=== PATIENT | female | born 1955 | race Caucasian/White ===

== ENCOUNTER 2016-12-03 19:39 | Observation (INO) | payer BC ==
--- NOTE | 2016-12-03 21:35 | RAD ---
INDICATION: Chest pain. COMPARISON: There are no prior studies available for comparison. TECHNIQUE: A portable view of the chest was obtained. FINDINGS: Cardiac and mediastinal contours appear to be within normal limits. The lungs are clear. No pleural effusion is seen. Note is made of dorsal column stimulator leads. IMPRESSION: NO EVIDENCE FOR ACUTE DISEASE.
[2016-12-03 21:59] LABS: Albumin 4.4 g/dL (3.2-5.2); BUN/Creatinine Ratio 15.2 (8-20); Calcium 9.5 mg/dL (8.6-10.3); EGFR African American 95.5 (>60); EGFR Non-African American 74.2 (>60); Globulin 2.5 g/dL (2-4); Potassium 3.2 mmol/L (3.5-5.0); Total Bilirubin 0.5 mg/dL (0.2-1.0); Total Protein 6.9 g/dL (6.4-8.9)
[2016-12-03 22:06] LABS: Hematocrit 41 % (35-47); Hemoglobin 13.4 g/dl (12.0-16.0); Mean Corpuscular HGB Conc 33 g/dl (31-36); Mean Corpuscular Hemoglobin 29 pg (27-31); Mean Corpuscular Volume 88 fL (80-97); Mean Platelet Volume 8 um3 (7.4-10.4); Red Cell Distribution Width 13 % (10.5-15); White Blood Count 7.8 10^3/ul (3.5-10.8)
[2016-12-03] MEDS ORDERED: Diazepam SYRINGE* 5 MG/ML SYRINGE IV ONE (22:17)
[2016-12-03] MEDS ORDERED: Metoclopramide IV* 5 MG/ML 2 ML VIAL IV SLOW PU ONE (22:17)
--- NOTE | 2016-12-03 22:49 | RAD ---
INDICATION: Headache history of hemangiomas. COMPARISON: Comparison is made to prior MRI of the brain from February 10, 2014. TECHNIQUE: Contiguous axial sections of the brain were obtained from the skull base to the vertex without contrast. FINDINGS: The ventricles, cisterns and sulci are within normal limits. There are small calcific densities in the left temporal lobe in the region of the hemangioma noted on the prior MRI study. There is a small area of increased density in the left cerebellar hemisphere which also correlates with a hemangioma on the prior study. No other focal abnormalities or mass effect are seen. There is no evidence for hemorrhage. No significant focal osseous abnormality is seen. The visualized portion of the paranasal sinuses and mastoid air cells appear clear. IMPRESSION: 1. NO EVIDENCE FOR ACUTE INTRACRANIAL ABNORMALITY. 2. CALCIFICATIONS IN AREAS OF INCREASED DENSITY CORRESPONDING WITH THE HEMANGIOMAS NOTED ON THE PRIOR MRI STUDY.
[2016-12-03] MEDS ORDERED: Ketorolac INJ* 30 MG/ML 1 ML VIAL IV PUSH ONE (23:32)
[2016-12-03] MEDS ORDERED: Aspirin TAB* 325 MG PO ONE (23:33)
[2016-12-03] MEDS ORDERED: traMADol TAB* 50 MG PO ONE (23:57)
[2016-12-04] MEDS ORDERED: Triamcinolone 0.025% OINT * 15 GM TUBE TOPICAL PRN (02:47)
[2016-12-04] MEDS ORDERED: Lidocaine PATCH 5%* 1 PATCH TRANSDERM PRN (02:47)
[2016-12-04] MEDS ORDERED: Cyclobenzaprine TAB* 10 MG PO PRN (02:47)
[2016-12-04] MEDS ORDERED: Levalbuterol 1.25MG/0.5ML NEB INH PRN (02:47)
--- NOTE | 2016-12-04 02:57 | HP ---
H&P (Free Text) History and Physical: PCP: Anna De La Cruz MD Cardiology: Date/Time of Evaluation: 12/04/2016 0215 CC: chest pain HPI: Mrs Joel is an obese 61YO female HX HTN & HLD who presented to the ED with an exacerbation of chronic neck pain which has since been treated and is nearly resolved. However, in the evaluation it was discovered that she also experienced non-exertional, non-radiating mild-mod substernal chest pressure without SOB, N/V, sweats, palpitations, or light-headedness. She states this began around 1500 & lasted for ~6hours. She denies exacerbating or alleviating factors. ED evaluation is notable for stable, afebrile vitals. K 3.2 & glucose of 127. CXR and CT brain WO were negative. ECG is NSR rate 90, mild ST depression in II/ III/AVF/V3/V4. 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 chronic spinal pain s/p stimulator hypothyroidism Meniere's disease OA seasonal allergies Allergies Iodine Allergy (Severe, Verified 11/20/16 09:37) Anaphylatic Shock Ambulatory Orders Acyclovir 400 mg PO TID 03/16/13 Calcium Carbonate [Calcium 600] 400 mg PO TID 03/16/13 Gabapentin 400 mg PO QID 03/16/13 Metoprolol Succinate [Metoprolol Succinate ER] 25 mg PO QPM 03/16/13 Tramadol HCl 50 mg PO QID 03/16/13 Triamterene/HCTZ 37.5-25 MG* [Dyazide*] 1 cap PO BID 03/16/13 Levothyroxine Sodium [Synthroid] 50 mcg PO QAM 08/20/14 Triamcinolone 0.1% CREAM (NF) [Kenalog 0.1% Cream (NF)] 1 applic TOPICAL BID PRN 08/02/15 Cetirizine* [ZyrTEC*] 10 mg PO DAILY 10/27/15 Levalbuterol 1.25MG/0.5ML NEB* [Xopenex 1.25 MG/0.5 ML NEB.HINA*] 1.25 mg INH QPM PRN 10/27/15 Simvastatin [Zocor 5 MG-] 10 mg PO QPM 10/27/15 Cholecalciferol TAB* [Vitamin D TAB*] 1,000 unit PO BID 02/14/16 Cyclobenzaprine TAB* [Flexeril TAB*] 5 mg PO TID PRN 07/23/16 sulfaSALAzine TAB* [Azulfidine TAB*] 500 mg PO TID 07/23/16 Lidocaine PATCH 5%* [Lidoderm 5% Patch*] 1 patch TRANSDERM DAILY PRN 11/20/16 Folic Acid TAB* [Folvite TAB*] 1 mg PO DAILY 12/04/16 Methotrexate TAB* 2.5 mg PO Q7D 12/04/16 PSurgHx tonsillectomy hysterectomy w/ LOO C3-6 anterior & posterior fusion C4-5 foraminotomy L3-4 laminectomy & diskectomy L4-5 diskectomy spinal stimulator implantation SocHx: no tobacco, alcohol, or recreational drug use; lives with her ; on disability formerly working as a medical office rent control office manager; full code status FamHx: Father: CAD; Mother: early onset Parkinsonism in her 30s, passed of 2nd complications in her 60s; otherwise positive for RA & OA ROS: as above, otherwise reviewed and all were negative Constitutional: NAD, normally developed, obese white female vitals: Vital Signs Temp 36.5 C 12/04/16 02:36 Pulse 77 12/04/16 02:25 Resp 12 12/04/16 02:25 BP 99/54 12/04/16 02:00 Pulse Ox 97 12/04/16 02:25 Intake & Output 12/03/16 12/03/16 12/04/16 11:59 23:59 11:59 Weight 74.843 kg HEENM: atraumatic; sclera/conjunctiva: non-icteric/clear; hearing: clinically intact; oropharynx: clear, mucosa moist Neck: soft tissue: no nuchal rigidity; thyroid: normal Pulmonary: clear to auscultation bilaterally, good aeration, no accessory muscle use CV: RR/RR, normal S1S2, no carotid bruit, no jugular venous distention, 2+ B DP/ PT, no edema Abdominal: soft, non-distended, non-tender, no rebound/guarding/rigidity, normoactive bowel sounds, no hepatosplenomegaly or masses, no costovertebral angle tenderness Musculoskeletal: general: grossly intact; gait: stable Integumental: normal appearance and texture of exposed skin Psychiatric orientation: AA&O to PPS affect: calm mood: cooperative eye contact: good content: reliable responses: timely insight: fair to good Testing: Lab Results 12/03/16 12/03/16 12/03/16 Range/Units 21:25 21:25 21:25 WBC 7.8 (3.5-10.8) 10^3/ul RBC 4.60 (4.0-5.4) 10^6/ul Hgb 13.4 (12.0-16.0) g/dl Hct 41 (35-47) % MCV 88 (80-97) fL MCH 29 (27-31) pg MCHC 33 (31-36) g/dl RDW 13 (10.5-15) % Plt Count 235 (150-450) 10^3/ul MPV 8 (7.4-10.4) um3 Neut % (Auto) 77.2 (38-83) % Lymph % (Auto) 19.0 L (25-47) % [place] % (Auto) 3.0 (1-9) % Eos % (Auto) 0.5 (0-6) % Baso % (Auto) 0.3 (0-2) % Absolute Neuts (auto) 6.0 (1.5-7.7) 10^3/ul Absolute Lymphs (auto) 1.5 (1.0-4.8) 10^3/ul Absolute Monos (auto) 0.2 (0-0.8) 10^3/ul Absolute Eos (auto) 0 (0-0.6) 10^3/ul Absolute Basos (auto) 0 (0-0.2) 10^3/ul Absolute Nucleated RBC 0.01 10^3/ul Nucleated RBC % 0.1 Sodium 131 L (133-145) mmol/L Potassium 3.2 L (3.5-5.0) mmol/L Chloride 94 L (101-111) mmol/L Carbon Dioxide 29 (22-32) mmol/L Anion Gap 8 (2-11) mmol/L BUN 12 (6-24) mg/dL Creatinine 0.79 (0.51-0.95) mg/dL Est GFR ( Amer) 95.5 (>60) Est GFR (Non-Af Amer) 74.2 (>60) BUN/Creatinine Ratio 15.2 (8-20) Glucose 127 H (70-100) mg/dL Lactic Acid 1.7 (0.5-2.0) mmol/L Calcium 9.5 (8.6-10.3) mg/dL Total Bilirubin 0.50 (0.2-1.0) mg/dL AST 18 (13-39) U/L ALT 16 (7-52) U/L Alkaline Phosphatase 81 (34-104) U/L Troponin I 0.00 (<0.04) ng/mL Total Protein 6.9 (6.4-8.9) g/dL Albumin 4.4 (3.2-5.2) g/dL Globulin 2.5 (2-4) g/dL Albumin/Globulin Ratio 1.8 (1-3) ECG, personally reviewed: NSR rate 90, mild ST depression in II/III/AVF/V3/V4 CXR, personally reviewed: IMPRESSION: NO EVIDENCE FOR ACUTE DISEASE. CT brain WO, personally reviewed: IMPRESSION: 1. NO EVIDENCE FOR ACUTE INTRACRANIAL ABNORMALITY. 2. CALCIFICATIONS IN AREAS OF INCREASED DENSITY CORRESPONDING WITH THE HEMANGIOMAS NOTED ON THE PRIOR MRI STUDY. 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 arthritis : continue methotrexate & sulfasalazine asthma : levalbuterol nebs PRN HX cavernous hemangioma of brain : no acute issues HX short OK syndrome : no acute issues chronic spinal pain s/p stimulator : continue gabapentin, tramadol, lidocaine patch, & cyclobenzaprine hypothyroidism : continue levothyroxine Meniere's disease : continue triamterene/HCTZ OA seasonal allergies : continue cetirizine Ambulatory Orders sulfaSALAzine TAB* [Azulfidine TAB*] 500 mg PO TID 07/23/16 Folic Acid TAB* [Folvite TAB*] 1 mg PO DAILY 12/04/16 Methotrexate TAB* 2.5 mg PO Q7D 12/04/16 Admission Rational: CDU observation for r/o ACS DVTp: heparin SQ Code Status: full HCP:
[2016-12-04] MEDS ORDERED: Ondansetron INJ* 2 MG/ML VIAL IV PRN (03:23)
[2016-12-04] MEDS ORDERED: Melatonin (NF) 3 MG TAB PO PRN (03:23)
[2016-12-04] MEDS ORDERED: Acetaminophen TAB* 325 MG PO PRN (03:23)
[2016-12-04] MEDS ORDERED: NS 0.9% 1000 ML* 1,000 ML IV SCH (03:30)
[2016-12-04] MEDS ORDERED: Omeprazole CAP* 20 MG PO SCH (06:00)
[2016-12-04] MEDS ORDERED: Levothyroxine TAB* 50 MCG TAB PO SCH (06:00)
[2016-12-04] MEDS: Potassium Chlor TAB* 20 MEQ TAB.ER PO SCH ×2 (06:04→08:47)
[2016-12-04 07:45] LABS: BUN/Creatinine Ratio 13.9 (8-20); Calcium 9.2 mg/dL (8.6-10.3); EGFR African American 95.5 (>60); EGFR Non-African American 74.2 (>60); Potassium 3.4 mmol/L (3.5-5.0)
[2016-12-04] MEDS: Gabapentin CAP(*) 400 MG PO SCH ×2 (08:46→14:54)
[2016-12-04] MEDS: traMADol TAB* 50 MG PO SCH ×2 (08:47→14:55)
[2016-12-04] MEDS ORDERED: Triamterene/HCTZ 37.5-25 MG* CAP PO SCH (09:00)
[2016-12-04] MEDS ORDERED: Docusate CAP* 100 MG PO SCH (09:00)
[2016-12-04 10:02] VITALS: BP 102/64
--- NOTE | 2016-12-04 12:23 | RAD ---
Edited for charges. INDICATION: Chest pain, shortness of breath, hypertension, elevated cholesterol , tobacco use, abnormal EKG. COMPARISON: None. TECHNIQUE: 10.420 mCi of Tc-99m Myoview were administered IV. SPECT images of the heart were obtained. Later on the same day, under the direction of Dr. Castro, the patient was given an IV injection of a pharmacologic stress agent. Subsequently, the patient was given an IV injection of 25.700 mCi Tc-99m Myoview. SPECT images of the heart were obtained and a gated wall motion study was performed. FINDINGS: Gated wall motion images were obtained at stress and demonstrate wall motion to be within normal limits. The calculated left ventricular ejection fraction is 76 % at stress. Estimated LEFT ventricular end diastolic volume is 58 mL. TID 1.04. Based on review of the attenuation corrected and non corrected images the distribution of radiopharmaceutical within the myocardium on the stress and rest images is within normal limits. No fixed or reversible regions of hypoperfusion evident. IMPRESSION: 1. No evidence for stress induced myocardial ischemia or presence of an infarct. 2. Normal left ventricular wall motion and ejection fraction. ASSESSMENT: LOW RISK. Based on imaging criteria from ACC/AHA 2002 Guideline Update for the Management of Patients With Chronic Stable Angina Table 23. Noninvasive Risk Stratification. MTDD
[2016-12-04] MEDS ORDERED: Regadenoson* 0.4 MG/5 ML SYRINGE ONE (12:52)
[2016-12-04] MEDS: Acyclovir TAB* 400 MG PO SCH ×2 (13:59→14:54)
[2016-12-04] MEDS: sulfaSALAzine TAB* 500 MG PO SCH ×2 (14:00→14:57)
--- NOTE | 2016-12-04 14:27 | DCNOTE ---
Subjective Date of Service: 12/04/16 Interval History: No more chest pain. Neck pain relieved by combination of IV diazepam, oral cleycbenzaprine, IV ketorolac inthe ED yesterday. Objective Active Medications: Acetaminophen (Tylenol Tab*) 650 mg PO Q6H PRN PRN Reason: FEVER/PAIN Acyclovir (Zovirax Tab*) 400 mg PO TID [facility] Last Admin: 12/04/16 13:59 Dose: Not Given Atorvastatin Calcium (Lipitor*) 5 mg PO QPM [facility] Cyclobenzaprine HCl (Flexeril Tab*) 5 mg PO TID PRN PRN Reason: SPASMS - BACK Docusate Sodium (Colace Cap*) 200 mg PO BID [facility] Gabapentin (Neurontin Cap(*)) 400 mg PO QID [facility] Last Admin: 12/04/16 08:46 Dose: 400 mg Heparin Sodium (Porcine) (Heparin Vial(*)) 5,000 units SUBCUT Q8HR [facility] Sodium Chloride (Ns 0.9% 1000 Ml*) 1,000 mls @ 75 mls/hr IV PER RATE [facility] Levalbuterol HCl (Xopenex 1.25 Mg/0.5 Ml Neb.Rola*) 1.25 mg INH QPM PRN PRN Reason: Asthma Levothyroxine Sodium (Synthroid Tab*) 50 mcg PO DAILY@0600 [facility] Last Admin: 12/04/16 06:05 Dose: 50 mcg Lidocaine (Lidoderm 5% Patch*) 1 patch TRANSDERM DAILY PRN PRN Reason: PAIN Melatonin (Melatonin (Nf)) 3 mg PO BEDTIME PRN; Protocol PRN Reason: Sleep Methotrexate (Methotrexate Tab*) 10 mg PO Fr@0900 [facility] Metoprolol Succinate (Toprol Xl Tab*) 25 mg PO QPM [facility] Omeprazole (Prilosec Cap*) 20 mg PO DAILY@0600 [facility] Last Admin: 12/04/16 06:05 Dose: 20 mg Ondansetron HCl (Zofran Inj*) 4 mg IV Q6H PRN PRN Reason: NAUSEA Sulfasalazine (Azulfidine Tab*) 500 mg PO TID [facility] Last Admin: 12/04/16 14:00 Dose: Not Given Tramadol HCl (Ultram*) 50 mg PO QID [facility] Last Admin: 12/04/16 08:47 Dose: 50 mg Triamcinolone Acetonide (Triamcinolone 0.025% Oint *) 1 applic TOPICAL BID PRN PRN Reason: RASH Triamterene/HCTZ (Dyazide Cap*) 1 cap PO BID BILL Vital Signs 12/04/16 12/04/16 12/04/16 02:25 02:30 02:36 Temperature 97.7 F Pulse Rate 77 Respiratory 12 Rate Blood Pressure 95/52 (mmHg) O2 Sat by Pulse 97 Oximetry 12/04/16 12/04/16 12/04/16 02:52 03:00 07:41 Temperature 97.7 F 98.1 F Pulse Rate 78 74 80 Respiratory 16 9 18 Rate Blood Pressure 122/75 121/72 103/59 (mmHg) O2 Sat by Pulse 99 98 96 Oximetry 12/04/16 12/04/16 12/04/16 08:46 08:47 10:01 Temperature 97.5 F Pulse Rate 93 Respiratory 16 16 16 Rate Blood Pressure 102/64 (mmHg) O2 Sat by Pulse 98 Oximetry Oxygen Devices in Use Now: None Appearance: Alert, partly up in bed. In good spirits. Looks comfortable. Eyes: No Scleral Icterus Ears/Nose/Mouth/Throat: Clear Oropharnyx, Mucous Membranes Moist Neck: NL Appearance and Movements; NL JVP, No Thyroid Enlargement, Masses Respiratory: Symmetrical Chest Expansion and Respiratory Effort, Clear to Auscultation, Clear to Percussion Cardiovascular: NL Sounds; No Murmurs; No JVD, RRR, No Edema, - Extremities: No Edema, No Clubbing, Cyanosis, - Skin: No Rash or Ulcers, No Nodules or Sclerosis, - Neurological: Alert and Oriented x 3, NL Sensation Result Diagrams: 12/03/16 21:25 12/04/16 07:06 Assess/Plan/Problems-Billing Assessment: - Patient Problems (1) Chest pain Current Visit: Yes Status: Acute Code(s): R07.9 - CHEST PAIN, UNSPECIFIED SNOMED Code(s): 15075586 Comment: Atypical. Neg stress test and troponins. Outpt fup. Sees Dr. Ferris for short [place], Dr. Bailey, Dr. De La Cruz. (2) Back pain Current Visit: No Status: Acute Priority: High Onset Date: 10/18/14 Code (s): M54.9 - DORSALGIA, UNSPECIFIED SNOMED Code(s): 790397991 Comment: Spinal stimulator for lumbar pain, yearly nerve ablations for cervical pain. Fup Dr. Bailey. (3) Inflammatory arthritis Current Visit: Yes Status: Acute Code(s): M19.90 - UNSPECIFIED OSTEOARTHRITIS, UNSPECIFIED SITE SNOMED Code(s): 6068235 Comment: Methotrexate per Dr. De La Cruz. (4) HTN (hypertension) Current Visit: No Status: Chronic Code(s): I10 - ESSENTIAL (PRIMARY) HYPERTENSION SNOMED Code(s): 06569059 Comment: Continue metoprolol XL. (5) Hypothyroid Current Visit: Yes Status: Acute Code(s): E03.9 - HYPOTHYROIDISM, UNSPECIFIED SNOMED Code(s): 03010708 Comment: Continue levothyroxine.
[2016-12-04] MEDS ORDERED: Atorvastatin* 10 MG TAB PO SCH (18:00)
[2016-12-04] MEDS ORDERED: Metoprolol Succinate XL TAB* 25 MG PO SCH (18:00)
[2016-12-05] MEDS ORDERED: Heparin VIAL(*) 5000 UNITS/ML VIAL (FIVE THOUSAND) SUBCUT SCH (06:00)
--- NOTE | 2016-12-05 21:29 | ED ---
Yuniel Petty Billy, scribed for Anibal Rivers MD on 12/03/16 at 2144 . Headache - HPI Summary HPI Summary: Patient is a 61 year-old female coming to [facility] for evaluation of acute-on- chronic, progressive occipital headache for the last 3 days. The pain radiates from the occipital region to the frontal through the right temporal-parietal area. She states that this is a recurrent problem since her cervical fusion surgery 25 years ago. She reports nausea, blurred vision, and photophobia, which is typical of previous episodes. She also reports neck pain which is worse when turning to the right. This afternoon, she had nonradiating, midsternal chest pressure. Denies any SOB, cough, or pain with inspiration. Denies fevers, chills, or diaphoresis. Denies any injury or trauma. - History Of Current Complaint Chief Complaint: EDHeadache Stated Complaint: NECK PAIN, HEADACHE, CHEST PRESSURE Time Seen by Provider: 12/03/16 20:50 Hx Obtained From: Patient Onset/Duration: Gradual Onset, Started days ago Initially Headache Was: Moderate Currently Pain Is: Moderate Timing: Constant Character: Typical Headache Location of Headache: Occipital Radiates to: frontal Aggravating Factor: Nothing Allevating Factors: Nothing Associated Signs And Symptoms: Other (Noted In Comments) - See HPI - Allergies/Home Medications Allergies/Adverse Reactions: Allergies Allergy/AdvReac Type Severity Reaction Status Date / Time Iodine Allergy Severe Anaphylatic Verified 11/20/16 09:37 Shock PMH/Surg Hx/FS Hx/Imm Hx Endocrine/Hematology History: Reports: Hx Thyroid Disease - HYPO Denies: Hx Diabetes Cardiovascular History: Reports: Hx Hypertension - WELL CONTROLLED WITH MEDS, Hx Syncope, Other Cardiovascular Problems/Disorders - SHORT ND INTERVAL SYNDROME Denies: Hx Pacemaker/ICD Respiratory History: Reports: Hx Asthma - MILD, Hx Seasonal Allergies GI History: Reports: Hx Gastroesophageal Reflux Disease - WELL CONTROLLED History: Denies: Hx Renal Disease Musculoskeletal History: Reports: Hx Arthritis - BACK, NECK AND LEFT THUMB, Hx Back Problems, Hx Gout, Hx Osteoporosis - Osteopenia, Other Musculoskeletal History - DDD Sensory History: Reports: Hx Contacts or Glasses - GLASSES, Hx Hearing Problem, Other Sensory Impairments - Meneirs Syndrome Denies: Hx Cataracts, Hx Hearing Aid Opthamlomology History: Reports: Hx Contacts or Glasses - GLASSES, Other Sensory Impairments - Meneirs Syndrome Denies: Hx Cataracts Neurological History: Reports: Hx Headaches, Other Neuro Impairments/Disorders - Hemingoma of brain; multiple. PAIN CLINIC PATIENT. POST LAMINECTOMY SYNDROM Denies: Hx Dementia, Hx Migraine, Hx Seizures Psychiatric History: Denies: Hx Panic Disorder - Cancer History Hx Chemotherapy: No Hx Radiation Therapy: No - Surgical History Surgery Procedure, Year, and Place: 1992 C3-4, 4-5, 5-6 ACDF. 1994 C3-4, 5-6 POSTERIOR FUSION. 1996 C5-6 POSTERIOR FORAMENOTOMY. 2005 LEFT L3-4 DISCECTOMY. 2007 RIGHT L4-5 SYNOVIAL CYST EXC. 01/2015 L2-3 LAMINECTOMY BROCKET. HYSTERECTOMY WITH LT OOPHERECTOMY 1984. T+A A CHILD. SPINAL STIMULATOR TRIAL - ALL PARTS INCLUDING WIRES REMOVED - PER DR LEI Stubbs Anesthesia Reactions: No Infectious Disease History: No Infectious Disease History: Denies: Traveled Outside the [place] in Last 30 Days - Family History Family History: Father is alive with a history of heart disease. Mother is in her 60s with complications of Parkinson's disease. She has a strong family history of rheumatoid and osteoarthritis. - Social History Alcohol Use: None Substance Use Type: Reports: None Smoking Status (MU): Never Smoked Tobacco Have You Smoked in the Last Year: No Review of Systems Negative: Fever, Chills, Skin Diaphoresis Positive: Photophobia, Blurred Vision. Negative: Erythema Negative: Ear Ache Positive: Chest Pain Negative: Shortness Of Breath, Cough Positive: Nausea Positive: Other - neck pain. Negative: Edema Negative: Rash Positive: Headache All Other Systems Reviewed And Are Negative: Yes Physical Exam - Summary Physical Exam Summary: Constitutional: Well-developed, Well-nourished, Alert. (-) Distressed Skin: Warm, Dry HENT: Normocephalic; Atraumatic Eyes: Conjunctiva normal Neck: Musculoskeletal ROM normal neck. (-) JVD, (-) Stridor, (-) Tracheal deviation Cardio: Rhythm regular, rate normal, Heart sounds normal; Intact distal pulses; The pedal pulses are 2+ and symmetric. Radial pulses are 2+ and symmetric. (-) Murmur Pulmonary/Chest wall: Effort normal. (-) Respiratory distress, (-) Wheezes, (-) Rales Abd: Soft, (-) Tenderness, (-) Distension, (-) Guarding, (-) Rebound Musculoskeletal: Pain with turning to the right. (-) Edema Lymph: (-) Cervical adenopathy Neuro: Alert, Oriented x3. No meningismus. Psych: Mood and affect Normal Triage Information Reviewed: Yes Vital Signs On Initial Exam: Initial Vitals Temp Pulse Resp BP Pulse Ox 97.7 F 92 18 145/86 99 12/03/16 19:41 12/03/16 19:41 12/03/16 19:41 12/03/16 19:41 12/03/16 19:41 Vital Signs Reviewed: Yes - [place] Coma Scale Coma Scale Total: 15 Diagnostics - Vital Signs Vital Signs Temp Pulse Resp BP Pulse Ox 12/03/16 19:44 97.7 F 92 18 145/86 100 12/03/16 19:41 97.7 F 92 18 145/86 99 - Laboratory Result Diagrams: 12/03/16 21:25 12/03/16 21:25 Lab Statement: Any lab studies that have been ordered have been reviewed, and results considered in the medical decision making process. - Radiology CXR Xray Interpretation: No Acute Changes Radiology Interpretation Completed By: Radiologist - CT Brain CT Interpretation Completed By: Radiologist - 1. NO EVIDENCE FOR ACUTE INTRACRANIAL ABNORMALITY. 2. CALCIFICATIONS IN AREAS OF INCREASED DENSITY CORRESPONDING WITH THE HEMANGIOMAS NOTED ON THE PRIOR MRI STUDY. - EKG 1947 EKG Interpretation: NSR 90 bpm, normal ST segment, no STEMI Re-Evaluation - Re-Evaluation First Eval Re-Evaluation Time: 23:36 Change: Improved Comment: CP resolved. CP present from 1500 to 2130. Headache Course/Dx - Course Assessment/Plan: 61 y/o female coming to the ED for evaluation of acute-on- chronic headache. CT of the brain, CXR were reviewed as read by radiologist. EKG shows NSR with no STEMI. In the ED course, patient was given Toradol, Reglan , Valium, and ASA. Patient care discussed with Dr. Jeff, who accepts the patient for admission. - Diagnoses Provider Diagnoses: cervical headache, Chest pain, unspecified Discharge - Discharge Plan Condition: Stable Disposition: ADMITTED TO [facility] documentation as recorded by the Yuniel hargrove Billy accurately reflects the service I personally performed and the decisions made by , Anibal Rivers MD.
[2016-12-07] MEDS ORDERED: Methotrexate TAB* 2.5 MG PO SCH (09:00)
== END 2016-12-04 15:21 | disposition home or self-care (01) ==
LOC: ED 19:39 → MEDTELE 12-04 02:15
PROVIDERS: ADMIT Hospitalist; ATTEND Hospitalist
DX: R07.9 Chest pain, unspecified (principal); M54.2 Cervicalgia; M54.9 Dorsalgia, unspecified; M19.90 Unspecified osteoarthritis, unspecified site; I10 Essential (primary) hypertension; E03.9 Hypothyroidism, unspecified; E78.5 Hyperlipidemia, unspecified; G89.29 Other chronic pain; H81.09 Meniere's disease, unspecified ear
CPT/HCPCS: 36415; 70450; 71010; 78452; 80048; 80053; 83036; 83605; 84484; 85025; 85730; 93005; 93017; 96374; 96375; 99285; A9270-GY; A9502; G0378; J1885; J2785; J3360

== ENCOUNTER 2021-07-31 10:44 | Inpatient (IN) ==
[2021-07-31] MEDS ORDERED: HYDROcodone/ACETAMIN 5/325 mg TAB PO ONE (12:23)
[2021-07-31 12:55] LABS: ABS Eosinophils 0.1 10^3/ul (0-0.6); ABS Lymphocytes 2.6 10^3/ul (1.0-4.8); ABS Monocytes 0.4 10^3/ul (0-0.8); ABS Neutrophils 3.8 10^3/ul (1.5-7.7); Eosinophil % 1.4 %; Hematocrit 40 % (35-47); Hemoglobin 13.4 g/dL (12.0-16.0); Lymphocyte % 37.6 %; Mean Corpuscular HGB Conc 34 g/dL (31-36); Mean Corpuscular Hemoglobin 29 pg (27-31); Mean Corpuscular Volume 87 fL (80-97); Mean Platelet Volume 6.7 fL (7.4-10.4); Nucleated Red Blood Cells % 0.1; Platelet Count 274 10^3/uL (150-450); Red Blood Count 4.57 10^6 /uL (3.70-4.87); Red Cell Distribution Width 14 % (10-15); White Blood Count 6.8 10^3/uL (3.5-10.8)
[2021-07-31 13:07] LABS: Albumin 4.4 g/dL (3.2-5.2); Calcium 9.6 mg/dL (8.6-10.3); Total Bilirubin 0.5 mg/dL (0.2-1.0)
[2021-07-31 13:13] LABS: Albumin/Globulin Ratio 1.8 (1-3); C Reactive Protein 3.06 mg/L (<8.01); Globulin 2.4 g/dL (2-4); Total Protein 6.8 g/dL (6.4-8.9); eGFR CKD-EPI 71.9 (>60)
[2021-07-31 15:41] LABS: Erythrocyte Sed Rate 5 mm/Hr (0-29)
[2021-07-31] MEDS ORDERED: Dexamethasone IV 4 MG/ML 5 ML VIAL (20 MG) IVPB ONE (15:55)
[2021-07-31] MEDS ORDERED: Acetaminophen IV 1 GM/100ML 100 ML IV ONE (16:00)
[2021-07-31] MEDS ORDERED: NS 0.9% ONE (16:47)
[2021-07-31] MEDS ORDERED: FLUID ONE (16:47)
[2021-07-31 19:21] LABS: Rapid COVID-19 Molecular Undetected (Undetected)
[2021-07-31 19:25] LABS: Urine Appearance Clear; Urine Bilirubin Negative (Negative); Urine Blood Negative (Negative); Urine Color Yellow; Urine Glucose Negative (Negative); Urine Ketones Negative (Negative); Urine Nitrite Negative (Negative); Urine Protein Negative (Negative); Urine Specific Gravity 1.005 (1.002-1.030); Urine Urobilinogen Negative (Negative)
[2021-07-31] MEDS: PTO: Apremilast 30 mg TAB (NF) PO SCH (21:54)
[2021-07-31] MEDS ORDERED: Dexamethasone IV 4 MG/ML VIAL 1 ml VIAL IV SLOW PU SCH (23:59)
[2021-08-01] MEDS: Dexamethasone IV 4 MG/ML VIAL 1 ml VIAL IV SLOW PU SCH ×3 (00:52→15:04)
[2021-08-01] MEDS ORDERED: Morphine 4 MG/ML VIAL (1 ml) IV PRN (05:07)
[2021-08-01 10:37] LABS: ABS Lymphocytes 0.9 10^3/ul (1.0-4.8); ABS Monocytes 0.1 10^3/ul (0-0.8); Hematocrit 43 % (35-47); Hemoglobin 14.5 g/dL (12.0-16.0); Lymphocyte % 10.5 %; Mean Corpuscular HGB Conc 34 g/dL (31-36); Mean Corpuscular Hemoglobin 29 pg (27-31); Mean Corpuscular Volume 87 fL (80-97); Mean Platelet Volume 6.8 fL (7.4-10.4); Nucleated Red Blood Cells % 0.1; Platelet Count 359 10^3/uL (150-450); Red Blood Count 4.93 10^6 /uL (3.70-4.87); Red Cell Distribution Width 14 % (10-15)
[2021-08-01 10:43] LABS: INR 1.03 (0.86-1.15)
[2021-08-01 10:51] LABS: Calcium 10.2 mg/dL (8.6-10.3); Potassium 3.8 mmol/L (3.5-5.0); eGFR CKD-EPI 86.9 (>60)
[2021-08-01] MEDS ORDERED: diPHENhydraMINE IV 50 MG/ML 1 ml VIAL (BENADRYL) IV PRN (14:38)
[2021-08-01] MEDS: Ondansetron 4 mg VIAL 2 MG/ML 2 ml VIAL IV PRN ×2 (15:07→20:59)
[2021-08-01] MEDS: PTO: Apremilast 30 mg TAB (NF) PO SCH ×2 (15:13→21:01)
[2021-08-02] MEDS: Dexamethasone IV 4 MG/ML VIAL 1 ml VIAL IV SLOW PU SCH ×2 (05:34→12:52)
[2021-08-02 06:43] LABS: Calcium 9.4 mg/dL (8.6-10.3); Potassium 3.5 mmol/L (3.5-5.0)
[2021-08-02] MEDS: PTO: Apremilast 30 mg TAB (NF) PO SCH ×2 (08:38→19:43)
[2021-08-02] MEDS ORDERED: diPHENhydraMINE IV 50 MG/ML 1 ml VIAL (BENADRYL) IV PRN (13:00)
[2021-08-02 17:51] LABS: Calcium 9.9 mg/dL (8.6-10.3); Potassium 3.4 mmol/L (3.5-5.0)
[2021-08-03 08:55] LABS: Calcium 9.8 mg/dL (8.6-10.3); Potassium 3.3 mmol/L (3.5-5.0); eGFR CKD-EPI 52.3 (>60)
[2021-08-03] MEDS: PTO: Apremilast 30 mg TAB (NF) PO SCH (09:05)
[2021-08-03] MEDS ORDERED: Potassium Chlor 20 meq TAB.ER PO ONE (09:21)
[2021-08-03 13:15] VITALS: BP 143/77
== END 2021-08-03 13:48 | disposition home or self-care (01) | DRG 347 ==
LOC: ED 10:44 → EDHOLD 18:11 → SUATTDRO 18:11 → MEDTELE 08-01 11:16
PROVIDERS: ADMIT Internal Medicine; ATTEND Hospitalist